=== PATIENT | female | born 1985 | race Caucasian/White ===

== ENCOUNTER → 2016-06-30 | Outpatient (CLI) | payer OTHER ==
[~2016-06-30] MED LIST: ACET50TA PO; IBUP-1114 PO; VITAPRTA PO
== END ==
LOC: M SMT 13:36
PROVIDERS: ATTEND Obstetrics & Gynecology
DX: N91.2 Amenorrhea, unspecified (principal)

== ENCOUNTER → 2016-07-02 | Outpatient (CLI) | payer OTHER | LOC: M SMT 12:07 | PROVIDERS: ATTEND Obstetrics & Gynecology | DX: N91.2 Amenorrhea, unspecified (principal) ==